=== PATIENT | female | born 1940 | race African-American/Black ===

== ENCOUNTER 2020-07-01 05:59 | Observation (INO) ==
[2020-07-01] MEDS ORDERED: DOCUSATE SODIUM 100 MG CAPSULE PO PRN (10:21)
[2020-07-01] MEDS ORDERED: ACETAMINOPHEN 325 MG TABLET PO PRN (10:21)
[2020-07-01] MEDS ORDERED: ONDANSETRON 4 MG/2 ML VIAL IV PRN (10:21)
[2020-07-01] MEDS ORDERED: MORPHINE 4 MG/1 ML VIAL IV PRN (10:21)
[2020-07-01] MEDS ORDERED: GLUCAGON 1 MG VIAL IM PRN (10:21)
[2020-07-01] MEDS ORDERED: NICOTINE 21 MG/24 HR PATCH TRANSDERM PRN (10:21)
[2020-07-01] MEDS ORDERED: DEXTROSE 50% 25 GM/50 ML VIAL IV PRN (10:21)
[2020-07-01 10:56] LABS: Basophils % 0.6 % (0.0-0.8); Eosinophils # 0.1 10*3/uL (0.0-0.87); Eosinophils % 1.4 % (0.00-10.9); Hematocrit 38.7 VOL% (35.7-47.0); Immature Granulocytes % 0.3 %; Immature Granulocytes Absolute 0.02 #; Lymphocytes # 1.2 10*3/uL (1.4-4.0); Lymphocytes % 17.9 % (21.3-54.2); Mean Corpuscular Volume 85.6 FL (87-102); Mean Platelet Volume 10.1 FL (9.6-12.0); Neutrophils % 73.8 % (38.7-73.9); Platelet Count 250 T/CUMM (130-400); Red Blood Count 4.52 MC/CUMM (3.8-5.5); Red Cell Distribution Width 14.7 % (9.3-17.3); White Blood Count 6.5 T/CUMM (4-12)
[2020-07-01 11:20] LABS: Albumin 2.7 G/DL (3.4-5.0); Bilirubin,Total 0.4 MG/DL (0.2-1.0); Calcium 8.9 MG/DL (8.5-10.1); Total Protein 7.6 G/DL (5.0-7.5)
[2020-07-01] MEDS: INSULIN LISPRO 100 UNIT/ML SUBCUT SCH ×3 (11:31→21:30)
[2020-07-01] MEDS ORDERED: NITROGLYCERIN SL 0.4 MG TABLET SL PRN (13:38)
[2020-07-01] MEDS ORDERED: MAGNESIUM SULF RIDER 2 GM in PREMIX 1 EACH IV PRN (13:44)
[2020-07-01] MEDS ORDERED: MAGNESIUM SULF RIDER 4 GM in PREMIX 1 EACH IV PRN (13:44)
[2020-07-01] MEDS: hydrALAZINE 20 MG/1 ML VIAL IV PRN ×2 (13:55→22:57)
[2020-07-01] MEDS ORDERED: LOSARTAN 25 MG TABLET PO SCH (14:00)
[2020-07-01] MEDS: carvediloL 6.25 MG TABLET PO SCH ×2 (14:02→21:29)
[2020-07-02] MEDS: hydrALAZINE 20 MG/1 ML VIAL IV PRN (05:17)
[2020-07-02 06:00] LABS: Basophils % 0.4 % (0.0-0.8); Eosinophils # 0.1 10*3/uL (0.0-0.87); Eosinophils % 2.5 % (0.00-10.9); Hematocrit 37.3 VOL% (35.7-47.0); Hemoglobin 11.5 GM/DL (12.0-16.0); Immature Granulocytes % 0.5 %; Immature Granulocytes Absolute 0.03 #; Lymphocytes # 1.3 10*3/uL (1.4-4.0); Lymphocytes % 23.9 % (21.3-54.2); Mean Corpuscular HGB Conc 30.8 GM/DL (32-36); Mean Corpuscular Volume 84.6 FL (87-102); Mean Platelet Volume 11.1 FL (9.6-12.0); Neutrophils % 62.7 % (38.7-73.9); Platelet Count 258 T/CUMM (130-400); Red Blood Count 4.41 MC/CUMM (3.8-5.5); Red Cell Distribution Width 14.9 % (9.3-17.3); White Blood Count 5.6 T/CUMM (4-12)
[2020-07-02 07:17] LABS: Albumin 2.5 G/DL (3.4-5.0); Bilirubin,Total 0.7 MG/DL (0.2-1.0); Calcium 8.7 MG/DL (8.5-10.1); Osmolality,Calculated 282.1 MOS/KG (273-304); Potassium 3.7 MMOL/L (3.5-5.1); Risk Ratio 3.18; Total Protein 6.8 G/DL (5.0-7.5)
[2020-07-02] MEDS: INSULIN LISPRO 100 UNIT/ML SUBCUT SCH ×2 (07:38→12:49)
[2020-07-02] MEDS ORDERED: LOSARTAN 50 MG TABLET PO SCH (07:40)
[2020-07-02] MEDS ORDERED: carvediloL 12.5 MG TABLET PO SCH (07:40)
[2020-07-02 08:51] VITALS: BP 170/100
[2020-07-02] MEDS ORDERED: PANTOPRAZOLE 40 MG TABLET PO SCH (09:00)
[2020-07-02] MEDS ORDERED: ASPIRIN EC 81 MG TABLET PO SCH (09:00)
[2020-07-02] MEDS ORDERED: ENOXAPARIN 40 MG/0.4 ML SYRINGE SUBCUT SCH (09:00)
[2020-07-02 10:31] LABS: Troponin I < 0.015 NG/ML (0.00-0.045)
== END 2020-07-02 13:35 | disposition home or self-care (01) ==
LOC: N.TELEN → SUATTDRO 08:27
PROVIDERS: ADMIT Internal Medicine; ATTEND Internal Medicine